=== PATIENT | male | born 1965 | race Caucasian/White ===

== ENCOUNTER → 2018-10-29 | Outpatient (CLI) | payer OTHER ==
[2018-10-29 15:21] LABS: ANION GAP 4 MEQ/L (8-16); BLOOD UREA NITROGEN 33 MG/DL (7-18); CALCIUM LEVEL 8.9 MG/DL (8.5-10.1); CARBON DIOXIDE LEVEL 32 MEQ/L (21-32); CHLORIDE LEVEL 106 MEQ/L (98-107); CREATININE FOR GFR 1.16 MG/DL (0.70-1.30); GLOMERULAR FILTRATION RATE > 60.0 (>56); GLUCOSE, FASTING 99 MG/DL (70-100); POTASSIUM SERUM 4.5 MEQ/L (3.5-5.1); SODIUM LEVEL 142 MEQ/L (136-145)
== END ==
LOC: M LAB 14:19
DX: M17.12 Unilateral primary osteoarthritis, left knee (principal)
CPT/HCPCS: 93005

== ENCOUNTER 2019-05-05 17:51 | Emergency (ER) | payer OTHER ==
[~2019-05-05] VITALS: Ht 188 cm; Wt 150.0 kg
[2019-05-05] MEDS ORDERED: ADACEL/BOOSTRIX VACCINE (DIPHTH/PERTUSS/ACELL/TETANUS)0.5ML SYR (90715) IM ONE (20:30)
[2019-05-05] MEDS ORDERED: GLUC15009 OR (20:34)
[2019-05-05] MEDS ORDERED: OMEP-221 OR (20:34)
[2019-05-05] MEDS ORDERED: METF850T4 OR (20:34)
[2019-05-05] MEDS ORDERED: NAPR-885 OR (20:34)
[2019-05-05] MEDS ORDERED: ROPI1TAB OR (20:34)
[2019-05-05] MEDS ORDERED: CIAL20TA OR (20:34)
[2019-05-05] MEDS ORDERED: SITA50TAB OR (20:34)
[2019-05-05] MEDS ORDERED: D200CAP3 PO (20:34)
[2019-05-05] MEDS ORDERED: GABA-845 OR (20:34)
[2019-05-05] MEDS ORDERED: ZEST1TAB3 OR (20:34)
[2019-05-05] MEDS ORDERED: ATOR1TAB21 OR (20:34)
[2019-05-05] MEDS ORDERED: BACT800T5 PO (22:18)
[2019-05-05 22:19] VITALS: BP 119/68
[2019-05-05] MEDS ORDERED: BACTRIM 160MG/800MG DS TAB PO ONE (22:30)
== END 2019-05-05 22:26 | disposition home or self-care (01) ==
LOC: M ED 17:51
DX: S90.421A Blister (nonthermal), right great toe, initial encounter (principal); S90.422A Blister (nonthermal), left great toe, initial encounter; S90.424A Blister (nonthermal), right lesser toe(s), initial encounter; S90.425A Blister (nonthermal), left lesser toe(s), initial encounter; S90.211A Contusion of right great toe with damage to nail, initial encounter; S90.221A Contusion of right lesser toe(s) with damage to nail, initial encounter; S90.212A Contusion of left great toe with damage to nail, initial encounter; S90.222A Contusion of left lesser toe(s) with damage to nail, initial encounter; S91.104A Unspecified open wound of right lesser toe(s) without damage to nail, initial encounter; X58.XXXA Exposure to other specified factors, initial encounter; Y92.098 Other place in other non-institutional residence as the place of occurrence of the external cause; E11.628 Type 2 diabetes mellitus with other skin complications; E11.40 Type 2 diabetes mellitus with diabetic neuropathy, unspecified; Z88.0 Allergy status to penicillin; Z79.899 Other long term (current) drug therapy; Z79.84 Long term (current) use of oral hypoglycemic drugs; Z79.1 Long term (current) use of non-steroidal anti-inflammatories (NSAID)

== ENCOUNTER → 2019-05-08 | Outpatient (REF) | payer OTHER ==
[~2019-05-08] MED LIST: ATOR1TAB21 OR; BACT800T5 PO; CIAL20TA OR; D200CAP3 PO; GABA-845 OR; GLUC15009 OR; METF850T4 OR; NAPR-885 OR; OMEP-221 OR; ROPI1TAB OR; SITA50TAB OR; ZEST1TAB3 OR
== END ==
LOC: M LAB REF 18:29
PROVIDERS: ATTEND Podiatrist
DX: M79.672 Pain in left foot (principal); L03.032 Cellulitis of left toe

== ENCOUNTER → 2020-11-08 | Outpatient (CLI) | payer SELFPAY ==
[~2020-11-08] MED LIST changes: -ROPI1TAB OR; +ROPI1TAB3 OR
== END ==
LOC: M LABSMTC 18:32
PROVIDERS: ATTEND Pediatrics
DX: Z11.59 Encounter for screening for other viral diseases (principal)

== ENCOUNTER → 2021-03-08 | Outpatient (CLI) | payer OTHER ==
--- NOTE | 2021-03-08 11:14 | REP ---
INDICATION: UNILATERAL PRIMARY OSTEOARTHRITIS, RIGHT HIP injury March 2020 in June 2020, pain COMPARISON: 09/12/2019. TECHNIQUE: Coronal T1, STIR through the pelvis, axial, coronal, sagittal T2 fat sat right hip. FINDINGS: There is again evidence of arthritic change at the right hip joint with moderate to severe chondromalacia particularly along the weight-bearing surface. There is mild subchondral marrow edema and cystic change in the superolateral acetabulum and in the femoral head. This has progressed since the prior study. There is no evidence of avascular necrosis. There is no occult fracture. There is tear of the superior labrum. There is a tear of the posterior labrum. There is a relatively normal amount of joint fluid. There is mild greater trochanteric tendonobursitis. The visualized intrapelvic structures are unremarkable. IMPRESSION: Moderately severe arthritic change at the right hip joint has progressed since the prior MRI as discussed in detail above. There is a tear of the superior labrum as well as the posterior labrum. There is mild greater trochanteric tendonobursitis. <Electronically signed by Pantera Barba > 03/08/21 [id number]
== END ==
LOC: M RAD 09:02
PROVIDERS: ATTEND Physician Assistant
DX: M16.11 Unilateral primary osteoarthritis, right hip (principal)

== ENCOUNTER 2021-07-20 12:46 | Emergency (ER) | payer OTHER ==
[~2021-07-20] VITALS: Ht 188 cm; Wt 135.9 kg
[~2021-07-20 12:46] MED LIST changes: +GABA-283 OR; -GABA-845 OR
--- NOTE | 2021-07-20 13:27 | REP ---
INDICATION: PAIN SWELLING LEFT FOOT. COMPARISON: None. TECHNIQUE: Four views FINDINGS: The joint spaces are symmetric and relatively well maintained. There is no evidence of acute fracture or destructive osseous lesion. IMPRESSION: Negative. <Electronically signed by Topher Clark > 07/20/21 [id number]
[2021-07-20 15:25] VITALS: BP 117/69
== END 2021-07-20 15:34 | disposition home or self-care (01) ==
LOC: M ED 12:46
DX: M79.672 Pain in left foot (principal); X58.XXXA Exposure to other specified factors, initial encounter; Y92.9 Unspecified place or not applicable; Y93.9 Activity, unspecified; Y99.9 Unspecified external cause status; I10 Essential (primary) hypertension; E78.5 Hyperlipidemia, unspecified; Z79.899 Other long term (current) drug therapy; Z88.0 Allergy status to penicillin

== ENCOUNTER → 2021-11-08 | Outpatient (CLI) | payer OTHER ==
--- NOTE | 2021-11-08 09:48 | REP ---
INDICATION: OSTEOARTHRISTIS COMPARISON: None. TECHNIQUE: PA and lateral. FINDINGS: The mediastinum and cardiac silhouette are normal. The lung taylor are clear and without acute consolidation, effusion, or pneumothorax. The skeletal structures are intact and normal. IMPRESSION: No acute cardiopulmonary process. <Electronically signed by Frank Koch > 11/08/21 [id number]
[2021-11-08 10:30] LABS: HEMATOCRIT 46.2 % (42.0-52.0); HEMOGLOBIN 14.6 g/dl (13.5-17.5); MEAN CORPUSCULAR HEMOGLOBIN 28.3 pg (27.0-33.0); MEAN CORPUSCULAR HGB CONC 31.6 g/dl (32.0-36.5); MEAN CORPUSCULAR VOLUME 89.7 fl (80.0-96.0); PLATELET COUNT, AUTOMATED 201 10^3/uL (150-450); RED BLOOD COUNT 5.15 10^6/uL (4.30-6.10); WHITE BLOOD COUNT 8.2 10^3/uL (4.0-10.0)
[2021-11-08 10:47] LABS: INR 0.89; PROTHROMBIN TIME 12.5 SECONDS (12.7-14.5)
[2021-11-08 11:09] LABS: ERYTHROCYTE SEDIMENTATION RATE 8 mm/hr (0-20)
[2021-11-08 11:19] LABS: ALT/SGPT 27 U/L (12-78); BILIRUBIN,TOTAL 0.4 MG/DL (0.2-1.0); BLOOD UREA NITROGEN 22 MG/DL (7-18); CALCIUM LEVEL 10.2 MG/DL (8.5-10.1); CARBON DIOXIDE LEVEL 33 MEQ/L (21-32); CHLORIDE LEVEL 104 MEQ/L (98-107); CREATININE FOR GFR 1.08 MG/DL (0.70-1.30); GLOMERULAR FILTRATION RATE > 60.0 (>56); GLUCOSE, FASTING 124 MG/DL (70-100); POTASSIUM SERUM 4.1 MEQ/L (3.5-5.1); SODIUM LEVEL 140 MEQ/L (136-145); TOTAL PROTEIN 7.2 GM/DL (6.4-8.2)
--- NOTE | 2021-11-09 07:42 | ECGEPIP ---
[facility] Test Date: 2021-11-08 Pat Name: MELBA ANNA Department: Room: - Gender: Male [employer]ist: eris : 1965 Requested By: Suraj Plata Order Number: [id number] Reading MD: Leopoldo Durbin Measurements Intervals [place] Rate: 53 P: 25 SD: 192 QRS: 32 QRSD: 84 T: 5 QT: 418 QTc: 392 Interpretive Statements Sinus bradycardia Low QRS complex voltage in the limb leads No significant change when compared to prior tracing of 10/29/2018 Electronically Signed on 11-09-2021 7:41:46 EST by Leopoldo Durbin
== END ==
LOC: M LAB 09:09
PROVIDERS: ATTEND Orthopaedic Surgery
DX: M19.90 Unspecified osteoarthritis, unspecified site (principal)

== ENCOUNTER → 2021-11-20 | Outpatient (CLI) | payer OTHER ==
[~2021-11-20] MED LIST changes: -OMEP-221 OR; +OMEP40CA5 OR
[2021-11-20 18:00] LABS: BASO % 0.4 % (0.0-1.0); EOS # 0.2 10^3/uL (0.0-0.5); EOS % 3.6 % (0.0-3.0); HEMATOCRIT 45.8 % (42.0-52.0); HEMOGLOBIN 14.5 g/dl (13.5-17.5); LYMPH # 1.9 10^3/uL (1.5-5.0); MEAN CORPUSCULAR HEMOGLOBIN 28.3 pg (27.0-33.0); MEAN CORPUSCULAR HGB CONC 31.7 g/dl (32.0-36.5); MEAN CORPUSCULAR VOLUME 89.3 fl (80.0-96.0); MONO # 0.6 10^3/uL (0.0-0.8); MONO % 8.4 % (2.0-8.0); NEUTROPHILS # 3.9 10^3/uL (1.5-8.5); PLATELET COUNT, AUTOMATED 249 10^3/uL (150-450); RED BLOOD COUNT 5.13 10^6/uL (4.30-6.10); WHITE BLOOD COUNT 6.7 10^3/uL (4.0-10.0)
[2021-11-20 19:59] LABS: ERYTHROCYTE SEDIMENTATION RATE 6 mm/hr (0-20)
[2021-11-22 20:07] LABS: Lyme Disease IgG Ab 18 kDa Ban Absent (.); Lyme Disease IgG Ab 23 kDa Ban Absent (.); Lyme Disease IgG Ab 28 kDa Ban Absent (.); Lyme Disease IgG Ab 30 kDa Ban Absent (.); Lyme Disease IgG Ab 39 kDa Ban Absent (.); Lyme Disease IgG Ab 41 kDa Ban Present (.); Lyme Disease IgG Ab 45 kDa Ban Absent (.); Lyme Disease IgG Ab 58 kDa Ban Absent (.); Lyme Disease IgG Ab 66 kDa Ban Absent (.); Lyme Disease IgG Ab 93 kDa Ban Present (.); Lyme Disease IgG West Blot Int Negative (.); Lyme Disease IgG/IgM Antibodie 1.38 ISR (0.00-0.90); Lyme Disease IgM Ab 23 kDa Ban Absent (.); Lyme Disease IgM Ab 39 kDa Ban Absent (.); Lyme Disease IgM Ab 41 kDa Ban Present (.); Lyme Disease IgM Ab Quantitati 6.54 index (0.00-0.79); Lyme Disease IgM West Blot Int Negative (.)
== END ==
LOC: M PLALAB 14:12
PROVIDERS: ATTEND Internal Medicine Infectious Disease
DX: R21 Rash and other nonspecific skin eruption (principal)

== ENCOUNTER → 2022-01-12 | Outpatient (CLI) | payer OTHER ==
[2022-01-12 10:05] LABS: HEMATOCRIT 45.8 % (42.0-52.0); HEMOGLOBIN 14.8 g/dl (13.5-17.5); MEAN CORPUSCULAR HEMOGLOBIN 28.7 pg (27.0-33.0); MEAN CORPUSCULAR HGB CONC 32.3 g/dl (32.0-36.5); MEAN CORPUSCULAR VOLUME 88.8 fl (80.0-96.0); PLATELET COUNT, AUTOMATED 211 10^3/uL (150-450); RED BLOOD COUNT 5.16 10^6/uL (4.30-6.10); WHITE BLOOD COUNT 4.7 10^3/uL (4.0-10.0)
[2022-01-12 10:24] LABS: ERYTHROCYTE SEDIMENTATION RATE 4 mm/hr (0-20); INR 0.9; PROTHROMBIN TIME 12.5 SECONDS (12.7-14.5)
[2022-01-12 11:01] LABS: ALBUMIN 4.3 GM/DL (3.2-5.2); ALT/SGPT 39 U/L (12-78); BILIRUBIN,TOTAL 0.5 MG/DL (0.2-1.0); BLOOD UREA NITROGEN 26 MG/DL (7-18); CALCIUM LEVEL 9.8 MG/DL (8.5-10.1); CARBON DIOXIDE LEVEL 26 MEQ/L (21-32); CHLORIDE LEVEL 107 MEQ/L (98-107); CREATININE FOR GFR 1.16 MG/DL (0.70-1.30); GLOMERULAR FILTRATION RATE > 60.0 (>56); GLUCOSE, FASTING 130 MG/DL (70-100); POTASSIUM SERUM 4.2 MEQ/L (3.5-5.1); SODIUM LEVEL 140 MEQ/L (136-145); TOTAL PROTEIN 7.2 GM/DL (6.4-8.2)
== END ==
LOC: M LAB 09:16
PROVIDERS: ATTEND Orthopaedic Surgery
DX: Z01.818 Encounter for other preprocedural examination (principal); M16.11 Unilateral primary osteoarthritis, right hip; Z88.0 Allergy status to penicillin

== ENCOUNTER 2023-09-30 08:37 | Emergency (ER) | payer OTHER ==
[~2023-09-30] VITALS: Ht 188 cm; Wt 155.0 kg
[~2023-09-30 08:37] MED LIST changes: -GABA-283 OR; +GABA-284 OR; -ROPI1TAB3 OR; +ROPI1TAB73 OR
[2023-09-30 08:39] VITALS: BP 146/86; TEMP 96.7; O2SAT 96
[2023-09-30] MEDS ORDERED: KETOROLAC 60MG 2ML VIAL IM ONE (11:00)
== END 2023-09-30 11:09 | disposition home or self-care (01) ==
LOC: M ED 08:37
DX: S29.001A Unspecified injury of muscle and tendon of front wall of thorax, initial encounter (principal); V86.95XA Unspecified occupant of 3- or 4- wheeled all-terrain vehicle (ATV) injured in nontraffic accident, initial encounter; Y92.009 Unspecified place in unspecified non-institutional (private) residence as the place of occurrence of the external cause; Y93.89 Activity, other specified; E11.9 Type 2 diabetes mellitus without complications; I10 Essential (primary) hypertension; G47.30 Sleep apnea, unspecified; Z79.84 Long term (current) use of oral hypoglycemic drugs; Z79.899 Other long term (current) drug therapy; Z88.0 Allergy status to penicillin
CPT/HCPCS: 71101; 96372; 99283; J1885

== ENCOUNTER 2023-12-23 14:57 | Emergency (ER) | payer OTHER ==
[~2023-12-23] VITALS: Ht 188 cm; Wt 152.3 kg
[2023-12-23] MEDS ORDERED: NS 1,000 ML IV ONE (20:40)
[2023-12-23] MEDS ORDERED: FLUORESCEIN OPHTH 1MG STRIP OS ONE (20:40)
[2023-12-23] MEDS ORDERED: ACYCLOVIR 1,000 MG in D5W 250 ML IV ONE (20:40)
[2023-12-23] MEDS ORDERED: NORCO, ANEXSIA 5/325MG TABLET (HYDROcodone/ACETAMINOPHEN) PO ONE (20:40)
[2023-12-23 21:16] LABS: BASO # 0.1 10^3/uL (0.0-0.2); EOS # 0.2 10^3/uL (0.0-0.5); EOS % 3.5 % (0.0-3.0); HEMATOCRIT 46.4 % (42.0-52.0); LYMPH # 1.8 10^3/uL (1.5-5.0); LYMPH % 30.8 % (24.0-44.0); MEAN CORPUSCULAR HEMOGLOBIN 29.5 pg (27.0-33.0); MEAN CORPUSCULAR HGB CONC 32.3 g/dl (32.0-36.5); MEAN CORPUSCULAR VOLUME 91.2 fl (80.0-96.0); MONO # 0.9 10^3/uL (0.0-0.8); MONO % 14.6 % (2.0-8.0); NEUTROPHILS % 49.8 % (36.0-66.0); PLATELET COUNT, AUTOMATED 176 10^3/uL (150-450); RED BLOOD COUNT 5.09 10^6/uL (4.30-6.10)
[2023-12-23 21:40] LABS: ALBUMIN 4.2 G/DL (3.2-5.2); ALKALINE PHOSPHATASE 92 U/L (46-116); ALT/SGPT 88 U/L (7.0-40); AST/SGOT 53 U/L (<34); BILIRUBIN,DIRECT 0.3 MG/DL (<0.4); BILIRUBIN,TOTAL 0.9 MG/DL (0.3-1.2); BLOOD UREA NITROGEN 17 MG/DL (9-23); CALCIUM LEVEL 9.7 MG/DL (8.5-10.1); CARBON DIOXIDE LEVEL 29 MMOL/L (20-31); CHLORIDE LEVEL 105 MMOL/L (98-107); CREATININE FOR GFR 0.94 MG/DL (0.70-1.30); GLOMERULAR FILTRATION RATE > 60.0 (>56); GLUCOSE, FASTING 107 MG/DL (60-100); POTASSIUM SERUM 4.5 MMOL/L (3.5-5.1); SODIUM LEVEL 140 MMOL/L (136-145); TOTAL PROTEIN 7.3 G/DL (5.7-8.2)
[2023-12-23] MEDS ORDERED: GABAPENTIN 300 MG CAP PO ONE (21:50)
[2023-12-23 21:55] VITALS: BP 162/87; TEMP 97.2; O2SAT 97
[2023-12-23] MEDS ORDERED: MORPHINE 4 MG/ML 1ML VIAL IV ONE (22:15)
[2023-12-23] MEDS ORDERED: NEUR600T PO (22:41)
[2023-12-23] MEDS ORDERED: HYDR-3713 PO ×2 (22:41→22:47)
[2023-12-23] MEDS ORDERED: ACYC1TAB4 PO (22:41)
[2023-12-23] MEDS ORDERED: MUPI2OI TOP (22:49)
[2023-12-23] MEDS ORDERED: NORCO 5/325MG TABLET (HOME DOSE PACK) PO ONE (22:50)
== END 2023-12-23 23:01 | disposition home or self-care (01) ==
LOC: M ED 14:57
DX: B02.9 Zoster without complications (principal); E11.9 Type 2 diabetes mellitus without complications; E78.5 Hyperlipidemia, unspecified; I10 Essential (primary) hypertension; Z88.0 Allergy status to penicillin; Z79.899 Other long term (current) drug therapy; Z79.84 Long term (current) use of oral hypoglycemic drugs
CPT/HCPCS: 80048; 80076; 85025; 96365; 96375; 99284; J0133

== ENCOUNTER 2024-01-13 15:20 | Emergency (ER) | payer OTHER ==
[~2024-01-13] VITALS: Ht 188 cm; Wt 154.0 kg
[~2024-01-13 15:20] MED LIST changes: +ACYC1TAB4 PO; +HYDR-3713 PO; +MUPI2OI TOP; +NEUR600T PO
[2024-01-13 20:18] LABS: BASO # 0.1 10^3/uL (0.0-0.2); BASO % 0.8 % (0.0-1.0); EOS # 0.2 10^3/uL (0.0-0.5); EOS % 3.4 % (0.0-3.0); HEMOGLOBIN 15.6 g/dl (13.5-17.5); LYMPH # 2.4 10^3/uL (1.5-5.0); LYMPH % 33.8 % (24.0-44.0); MEAN CORPUSCULAR HEMOGLOBIN 29.2 pg (27.0-33.0); MEAN CORPUSCULAR HGB CONC 31.8 g/dl (32.0-36.5); MEAN CORPUSCULAR VOLUME 91.8 fl (80.0-96.0); MONO # 0.5 10^3/uL (0.0-0.8); MONO % 7.5 % (2.0-8.0); NEUTROPHILS # 3.8 10^3/uL (1.5-8.5); NEUTROPHILS % 54.1 % (36.0-66.0); PLATELET COUNT, AUTOMATED 233 10^3/uL (150-450); RED BLOOD COUNT 5.34 10^6/uL (4.30-6.10); WHITE BLOOD COUNT 7.1 10^3/uL (4.0-10.0)
[2024-01-13 20:33] LABS: BLOOD UREA NITROGEN 17 MG/DL (9-23); CALCIUM LEVEL 9.6 MG/DL (8.5-10.1); CARBON DIOXIDE LEVEL 28 MMOL/L (20-31); CHLORIDE LEVEL 104 MMOL/L (98-107); CREATININE FOR GFR 0.85 MG/DL (0.70-1.30); GLOMERULAR FILTRATION RATE > 60.0 (>56); GLUCOSE, FASTING 107 MG/DL (60-100); MAGNESIUM LEVEL 1.9 MG/DL (1.8-2.4); POTASSIUM SERUM 4.1 MMOL/L (3.5-5.1); SODIUM LEVEL 139 MMOL/L (136-145)
[2024-01-13] MEDS ORDERED: ISOVUE-370 76% 100ML VIAL As Ordered ONE (20:43)
[2024-01-13 20:46] LABS: ERYTHROCYTE SEDIMENTATION RATE 39 mm/hr (0-20)
[2024-01-13] MEDS: NS 1,000 ML IV ONE (21:00)
[2024-01-13] MEDS: KETOROLAC 30 MG/ML 1ML VIAL IV ONE (21:02)
[2024-01-13] MEDS: diphenhydrAMINE 50MG/ML VIAL IV ONE (21:09)
[2024-01-13] MEDS: METOCLOPRAMIDE INJ 10MG/2ML VIAL IV ONE (21:11)
[2024-01-13] MEDS: MAG SULF 1GM/100ML (MAG RUN) 1 GM in IV 1 EA IV ONE (21:15)
[2024-01-13 22:34] VITALS: TEMP 98; O2SAT 98
[2024-01-13] MEDS ORDERED: AMIT10TA7 PO (23:23)
[2024-01-13] MEDS: AMITRIPTYLINE 10MG TABLET PO STA (23:43)
[2024-01-13] MEDS: MUPIROCIN 2% OINT 22 GM TUBE TOP ONE (23:57)
[2024-01-14 00:09] VITALS: BP 144/80
== END 2024-01-14 00:10 | disposition home or self-care (01) ==
LOC: M ED 15:20
DX: G50.0 Trigeminal neuralgia (principal); G43.909 Migraine, unspecified, not intractable, without status migrainosus; E11.9 Type 2 diabetes mellitus without complications; I10 Essential (primary) hypertension; E78.5 Hyperlipidemia, unspecified; K21.9 Gastro-esophageal reflux disease without esophagitis; Z88.0 Allergy status to penicillin; Z79.84 Long term (current) use of oral hypoglycemic drugs; Z79.899 Other long term (current) drug therapy
CPT/HCPCS: 70450; 70496; 70498; 80048; 83735; 85025; 85652; 87486; 87581; 87633; 87798; 96365; 96375; 99284; J1100; J1200; J1885; J2765; J3475; Q9967

== ENCOUNTER → 2025-02-16 | Outpatient (REF) | payer OTHER ==
[~2025-02-16] MED LIST changes: +AMIT10TA7 PO
== END ==
LOC: M LAB REF 15:04
PROVIDERS: ATTEND Podiatrist
DX: L03.126 Acute lymphangitis of left lower limb (principal)

== ENCOUNTER → 2025-03-09 | Outpatient (REF) | payer OTHER | LOC: M LAB REF 16:59 | PROVIDERS: ATTEND Podiatrist | DX: L03.124 Acute lymphangitis of left upper limb (principal) ==

== ENCOUNTER → 2025-08-23 | Outpatient (REF) | payer OTHER ==
[~2025-08-23] MED LIST changes: +AMIT10TA11 PO; -AMIT10TA7 PO
== END ==
LOC: M LAB REF 17:20
PROVIDERS: ATTEND Podiatrist
DX: L03.119 Cellulitis of unspecified part of limb (principal)

== ENCOUNTER → 2025-10-05 | Outpatient (CLI) | payer OTHER ==
[2025-10-05 09:41] LABS: BASO # 0.0 10^3/uL (0.0-0.2); BASO % 0.6 % (0.0-1.0); EOS # 0.2 10^3/uL (0.0-0.5); EOS % 3.9 % (0.0-3.0); LYMPH # 1.3 10^3/uL (1.5-5.0); LYMPH % 21.1 % (24.0-44.0); MONO # 0.6 10^3/uL (0.0-0.8); MONO % 10.3 % (2.0-8.0); NEUTROPHILS # 4.0 10^3/uL (1.5-8.5); NEUTROPHILS % 63.8 % (36.0-66.0); PLATELET COUNT, AUTOMATED 245 10^3/uL (150-450)
[2025-10-05 10:03] LABS: ALT/SGPT 40 U/L (7.0-40); AST/SGOT 25 U/L (<34); CALCIUM LEVEL 9.7 MG/DL (8.5-10.1); CARBON DIOXIDE LEVEL 28 MMOL/L (20-31); CHLORIDE LEVEL 104 MMOL/L (98-107); CREATININE FOR GFR 0.90 MG/DL (0.70-1.30); GLOMERULAR FILTRATION RATE > 90.0 (>56); POTASSIUM SERUM 4.4 MMOL/L (3.5-5.1); SODIUM LEVEL 143 MMOL/L (136-145)
== END ==
LOC: M EKG 09:03
PROVIDERS: ATTEND Podiatrist
DX: Z01.818 Encounter for other preprocedural examination (principal); M79.671 Pain in right foot; M21.621 Bunionette of right foot; I49.1 Atrial premature depolarization

== ENCOUNTER 2025-11-05 06:12 | Day surgery (SDC) | payer OTHER ==
[~2025-11-05] VITALS: Ht 188 cm; Wt 154.2 kg
[~2025-11-05 06:12] MED LIST changes: -ATOR1TAB21 OR; +ATOR1TAB21 PO; +DULA3PEN; -GABA-284 OR; +GABA-284 PO; -GLUC15009 OR; +GLUC15009 PO; +JARD1TAB3 PO; -METF850T4 OR; +METF850T4 PO; -NAPR-885 OR; +NAPR-885 PO; -OMEP40CA5 OR; +OMEP40CA5 PO; -ROPI1TAB73 OR; +ROPI1TAB73 PO; -SITA50TAB OR; +SITA50TAB PO; +VITA100093 PO; -ZEST1TAB3 OR; +ZEST1TAB3 PO
[2025-11-05] MEDS ORDERED: ACETAMINOPHEN 1000MG/100ML IV BAG As Ordered ONE (07:09)
[2025-11-05] MEDS ORDERED: KETOROLAC 30 MG/ML 1 ML VIAL As Ordered ONE (07:09)
[2025-11-05] MEDS ORDERED: ONDANSETRON 4MG/2ML VIAL As Ordered ONE (07:09)
[2025-11-05] MEDS ORDERED: LIDOCAINE 2% 100 MG/5 ML SDV (FOR ANES.) As Ordered ONE (07:09)
[2025-11-05] MEDS ORDERED: dexAMETHasone 4 MG/ML 1 ML VIAL As Ordered ONE (07:09)
[2025-11-05] MEDS ORDERED: dexmedeTOMIDine (4 MCG/ML) 200 MCG/50 ML BTL As Ordered ONE (07:10)
[2025-11-05] MEDS ORDERED: MIDAZOLAM INJ 2 MG/2 ML VIAL As Ordered ONE (07:13)
[2025-11-05] MEDS: LR 1,000 ML IV SCH (07:35)
[2025-11-05] MEDS: LIDOCAINE 2% MDV 20 ML VIAL As Ordered ONE (07:51)
[2025-11-05] MEDS: ceFAZolin SOD 3 GM in DEXTROSE 5% (D5W) MINI-BAG PLU 1... IV ONE (08:00)
[2025-11-05] MEDS: GENTAMICIN SULF 80 MG/2 ML VIAL As Ordered ONE (08:25)
[2025-11-05] MEDS: ROPIvacaine 0.5% 30ML VIAL As Ordered ONE (08:53)
[2025-11-05 09:41] VITALS: TEMP 97.3
[2025-11-05 10:04] VITALS: BP 144/63; O2SAT 95
== END 2025-11-05 10:05 | disposition home or self-care (01) ==
LOC: M SDC 06:12
PROVIDERS: ATTEND Podiatrist
DX: M21.622 Bunionette of left foot (principal); E11.40 Type 2 diabetes mellitus with diabetic neuropathy, unspecified; E11.621 Type 2 diabetes mellitus with foot ulcer; L97.529 Non-pressure chronic ulcer of other part of left foot with unspecified severity; I10 Essential (primary) hypertension; E78.00 Pure hypercholesterolemia, unspecified; G47.30 Sleep apnea, unspecified; G25.81 Restless legs syndrome; Z79.84 Long term (current) use of oral hypoglycemic drugs; Z79.85 Long-term (current) use of injectable non-insulin antidiabetic drugs; K21.9 Gastro-esophageal reflux disease without esophagitis; Z79.899 Other long term (current) drug therapy; Z88.0 Allergy status to penicillin
CPT/HCPCS: 28308; 73630; 76000; C1713; J0131; J0665; J0688; J1100; J1580; J1885; J2250; J2405; J3010